=== PATIENT | male | born 1995 | race Two or more races ===

== ENCOUNTER 2025-06-20 21:21 | Emergency (ER) | payer SELFPAY ==
[~2025-06-20] VITALS: Ht 175.3 cm; Wt 163.3 kg
--- NOTE | 2025-06-20 21:46 | ED.PDOC ---
SOB-HPI HPI Comments 29 year old male with a Hx of Asthma presents to the ED for the c/c of SOB w/ associated Cough, Fever, and lightheadedness. Pt states that his symptoms started approx 10x hours ago at work. Pt notes that he did use his inhaler, but notes of no alleviating factors. Pt is noted to have mild wheezing at this time. No other associated symptoms, modifiers, recent injuries or sick contacts present at this time. Time Seen by MD: 21:41 Reviewed notes: Nurses Notes, Medications, Allergies Information Source: Patient Mode of Arrival: Ambulatory Severity: Moderate Timing: Hours Duration: Intermittent, Hours Context: At Rest PE Risk Factors: None History of: Asthma Prehospital treatment: None Modifying Factors: Exertion Associated Signs and Symptoms: Fever If cough with SOB: Non-Productive Past Medical History PAST MEDICAL HISTORY: Asthma Surgical History: Denies all surgeries Family History Family History: Unknown Social History Smoker: Non-Smoker Alcohol: Denies ETOH Use Drugs: Denies Drug Use Lives In: Home Constitutional: reports: fever; denies: chills, diaphoresis, fatigue, malaise, sweats, weakness, others EENTM: denies: blurred vision, double vision, ear bleeding, ear discharge, ear drainage, ear pain, ear ringing, eye pain, eye redness, hearing loss, mouth pain, mouth swelling, nasal discharge, nose bleeding, nose congestion, nose pain, photophobia, tearing, throat pain, throat swelling, voice changes, others Respiratory: reports: SOB at rest, shortness of breath; denies: cough, hemoptysis, orthopnea, SOB with excertion, stridor, wheezing, others Cardiovascular: denies: chest pain, dizzy spells, diaphoresis, Dyspnea on exertion, edema, irregular heart beat, left arm pain, lightheadedness, palpitations, PND, syncope, others Gastrointestinal: denies: abdomen distended, abdominal pain, blood streaked bowels, constipated, diarrhea, dysphagia, difficulty swallowing, hematemesis, melena, nausea, poor appetite, poor fluid intake, rectal bleeding, rectal pain, vomiting, others Genitourinary: denies: burning, dysuria, flank pain, frequency, hematuria, incontinence, penile discharge, penile sore, pain, testicle pain, testicle swelling, urgency, others Neurological: denies: dizziness, fainting, headache, left sided numbness, left sided weakness, numbness, paresthesia, pre-existing deficit, right sided numbness, right sided weakness, seizure, speech problems, tingling, tremors, weakness, others Musculoskeletal: denies: back pain, gout, joint pain, joint swelling, muscle pain, muscle stiffness, neck pain, others Integumetry: denies: bruises, change in color, change in hair/nails, dryness, laceration, lesions, lumps, rash, wounds, others Allergic/Immunocompromised: denies: Difficulty Healing, Frequent Infections, Hives, Itching, others Hematologic/Lymphatic: denies: anemia, blood clots, easy bleeding, easy bruising, swollen glands, others Endocrine: denies: excessive hunger, excessive sweating, excessive thirst, excessive urination, flushing, intolerance to cold, intolerance to heat, unexplained weight gain, unexplained weight loss, others Psychiatric: denies: anxiety, bipolar disorder, depression, hopeless, panic disorder, schizophrenia, sleepless, suicidal, others All Other Systems: Reviewed and Negative Physical Exam General Appearance: Mild Distress, Normal, Obese HEENT: Normal ENT Inspection, Pharynx Normal, TMs Normal Neck: Full Range of Motion, Non-Tender, Normal, Normal Inspection Respiratory: Chest Non-Tender, No Accessory Muscle Use, Normal Breath Sounds, Wheezing (scatterd) Cardiovascular: No Edema, No JVD, No Murmur, Normal Peripheral Pulses, Regular Rate/Rhythm Breast Exam: Deferred Gastrointestinal: No Organomegaly, Non Tender, No Pulsatile Mass, Normal Bowel Sounds, Soft Genitalia: Deferred Pelvic: Deferred Rectal: Deferred Extremities: No calf tenderness, Normal capillary refill, Normal inspection, Normal range of motion, Non-tender, No pedal edema Musculoskeletal : Apperance: Normal Neurologic: Alert, No Motor Deficits, Normal Affect, Normal Mood, No Sensory Deficits Cerebellar Function: Normal Reflexes: Normal Skin: Dry, Normal Color, Warm Lymphatic: No Adenopathy Was a procedure done? Was a procedure done?: No Differential Dx Differential Diagnosis: Anxiety, Asthma, Bronchitis, COPD, Panic Attack, Pneumonia, Pneumothorax, Pulmonary Embolism, Sinusitis, Allergic Rhinitis, Pharyngitis X-Ray, Labs, Meds, VS Vital Signs Date Time Temp Pulse Resp B/P (MAP) Pulse Ox O2 Delivery O2 Flow Rate FiO2 06/20/25 23:08 18 97 Room Air* 0 21 06/20/25 23:07 97.9 66 18 150/75 (100) 97 97.9 06/20/25 22:00 16 99 Room Air* 0 21 06/20/25 21:46 97.4 75 22 145/89 (107) 95 97.4 Current Medications Medications (Trade) Dose Ordered Sig/Rupinder Route Start Time Stop Time Status Last Admin Albuterol (Ventolin Medneb) 2.5 mg ONCE ONCE NEB 06/20/25 21:45 06/20/25 21:46 DC 06/20/25 22:01 PATIENT: CORAZON JENNINGS ACCT: [id number] UNIT: [id number] : 1995 LOC: ER ROOM / BED: / AGE / SEX: 29 / M ADM STATUS: REG ER SERVICE 34 ORDERING PHYSICIAN: HEENA KOWALSKI MD PROCEDURE(s): CXR1 - CHEST XRAY 1 VIEW REASON: SOB ORDER NUMBER(s): [id number], ACCESSION NUMBER(s): [id number] CHEST RADIOGRAPH Indication: SOB Technique: Single frontal view of the chest was obtained COMPARISON: None FINDINGS: Lines and Tubes: None Lungs: Clear Pleura: No effusion. No pneumothorax. Cardiomediastinal contours: Unremarkable Bones: Unremarkable IMPRESSION: 1. No acute disease. Time of 1ST Reevaluation: 22:12 Reevaluation 1ST: Unchanged Patient Education/Counseling: Diagnosis, Treatment, Need For Follow Up Family Education/Counseling: No Family Present SEPSIS Sepsis Screen Physician Orders Chest Xray 1 View (06/20/25 21:35) Electrocardigram (06/20/25 21:35) Vital Signs Date Time Temp Pulse Resp B/P (MAP) Pulse Ox O2 Delivery O2 Flow Rate FiO2 06/20/25 23:08 18 97 Room Air* 0 21 06/20/25 23:07 97.9 66 18 150/75 (100) 97 97.9 06/20/25 22:00 16 99 Room Air* 0 21 06/20/25 21:46 97.4 75 22 145/89 (107) 95 97.4 Medications Medications Dose Ordered Sig/Rupinder Route Start Time Stop Time Status Last Admin Dose Admin Albuterol 2.5 mg ONCE ONCE NEB 06/20/25 21:45 06/20/25 21:46 DC 06/20/25 22:01 Departure 1 Departure Time of Disposition: 23:30 Impression: Primary Impression: Bronchospasm Disposition: HOME / SELF CARE / HOMELESS Condition: Stable e-Prescriptions Albuterol Sulfate (Albuterol Sulfate Hfa) 108 Mcg/Act Aer 108 MCG IN Q6HP PRN, #1 AER Prov: HEENA KOWALSKI MD 06/20/25 Discharged With: Self Critical Care Note Critical Care Time?: No Stability Stability form required: No Heart Score Heart Score: Heart Score Response (Comments) Value History N/A 0 EKG N/A 0 Age N/A 0 Risk Factors N/A 0 Troponin N/A 0 Total 0 I personally scribed for HEENA KOWALSKI MD ([email or web address]) on 06/20/25 at 21:46. Electronically submitted by Radames Wilkins ([email or web address]). I personally scribed for HEENA KOWALSKI MD ([email or web address]) on 06/20/25 at 22:36. Electronically submitted by Radames Wilkins ([email or web address]). I personally scribed for HEENA KOWALSKI MD ([email or web address]) on 06/20/25 at 22:52. Electronically submitted by Radames Wilkins ([email or web address] Aligned). HEENA KOWALSKI MD Jun 20, 2025 21:46
[2025-06-20] MEDS: ALBUTEROL SULF 2.5 MG/0.5ML(0.5%) NEB SOLN NEB ONE (22:01)
--- NOTE | 2025-06-20 22:35 | DVH ---
CHEST RADIOGRAPH Indication: SOB Technique: Single frontal view of the chest was obtained COMPARISON: None FINDINGS: Lines and Tubes: None Lungs: Clear Pleura: No effusion. No pneumothorax. Cardiomediastinal contours: Unremarkable Bones: Unremarkable IMPRESSION: 1. No acute disease.
[2025-06-20] MEDS ORDERED: ALBU108A5 IN (22:58)
[2025-06-20 23:07] VITALS: BP 150/75; PULSE 66; TEMP 97.9
[2025-06-20 23:08] VITALS: RESP 18; O2SAT 97
== END 2025-06-20 23:10 | disposition home or self-care (01) ==
LOC: ER 21:21
DX: J98.01 Acute bronchospasm (principal)
CPT/HCPCS: 71045; 94640